=== PATIENT | female | born 1990 | race Caucasian/White ===

== ENCOUNTER 2018-01-05 11:44 | Emergency (ER) | payer OTHER ==
[2018-01-05] MEDS ORDERED: KETOROLAC 60 MG/2 ML VIAL IM STA (12:17)
[2018-01-05] MEDS ORDERED: LIDOCAINE PATCH 5% TOP STA (12:17)
[2018-01-05] MEDS ORDERED: DEXAMETHASONE 10 MG/ML VIAL PO STA (12:17)
[2018-01-05] MEDS ORDERED: ACETAMINOPHEN 500 MG TABLET PO STA (12:17)
--- NOTE | 2018-01-05 12:20 | ED Physician Documentation ---
PD HPI BACK PAIN - Stated complaint Stated Complaint: BK PX - Chief complaint Chief Complaint: General - History obtained from History obtained from: Patient - History of Present Illness Timing - onset: Yesterday Timing - details: Abrupt onset Location: Lower, Right Quality: Pain, Spasm Associated symptoms: No: Fever, Weakness Contributing factors: Lifting Similar symptoms before: Work up / diagnostics, Treatment Recently seen: Not recently seen - Additional information Additional information: patient is a 27 year old female with a history of a bulging disc and sciatica who is presenting to the emergency department for low back pain. Patient states that she was washing her dog yesterday evening and she tried to pick him up and he wiggled out of her arm. During that incident it caused pain in her lower back radiating down her leg. Review of Systems Constitutional: denies: Fever : denies: Dysuria, Frequency, Hesitancy, Unable to Void, Incontinent Skin: denies: Rash, Lesions Musculoskeletal: reports: Back pain, Extremity pain Neurologic: denies: Generalized weakness, Focal weakness, Numbness PD PAST MEDICAL HISTORY - Past Medical History Past Medical History: No - Past Surgical History Past Surgical History: No - Present Medications Home Medications: Ambulatory Orders Medication Instructions Recorded Confirmed Cyclobenzaprine [Flexeril] 10 mg PO 01/05/18 Etonogestrel [Nexplanon] 68 mg SQ 01/05/18 Lidocaine Patch 5% [Lidoderm Patch] 1 each TOP DAILY #14 patch 01/05/18 diazePAM [Valium] 5 - 10 mg PO TID PRN #15 tablet 01/05/18 - Allergies Allergies/Adverse Reactions: Allergies Allergy/AdvReac Type Severity Reaction Status Date / Time No Known Drug Allergies Allergy Verified 01/05/18 11:49 - Social History Does the pt smoke?: No Smoking Status: Never smoker Does the pt drink ETOH?: No Does the pt have substance abuse?: No - Immunizations Immunizations are current?: Yes - POLST Patient has POLST: No PD ED PE NORMAL - Vitals Vital signs reviewed: Yes - General General: No acute distress - HEENT HEENT: Atraumatic - Neck Neck: Supple, no meningeal sign - Cardiac Cardiac: RRR - Respiratory Respiratory: No respiratory distress - Abdomen Abdomen: Soft, Non tender - Derm Derm: Normal color, Warm and dry - Neuro Neuro: No sensory deficit Eye Opening: Spontaneous Motor: Obeys Commands - Psych Psych: Normal mood PD ED PE EXPANDED - Back Back: Soft tissue tenderness, Straight leg raise + R Results - Vitals Vitals: Vital Signs - 24 hr 01/05/18 11:48 Temperature 36.5 C Heart Rate 108 H Respiratory 22 Rate Blood Pressure 159/104 H O2 Saturation 100 Oxygen O2 Source Room air PD MEDICAL DECISION MAKING - ED course Complexity details: reviewed old records, reviewed results, re-evaluated patient , considered differential, d/w patient ED course: Patient was seen and examined at bedside. patient was well appearing in no distress. No imaging was indicated at this time. patient was able to ambulate without difficulty and had no parasthesias or focal deficits. Patient was treated with toradol, decadron and a lidoderm patch. Patient required no further work up at this time and was stable for discharge with outpatient follow up. - Sepsis Event Vital Signs: Vital Signs - 24 hr 01/05/18 11:48 Temperature 36.5 C Heart Rate 108 H Respiratory 22 Rate Blood Pressure 159/104 H O2 Saturation 100 Oxygen O2 Source Room air Departure - Departure Disposition: 01 Home, Self Care Clinical Impression: Sciatica Condition: Good Instructions: ED Sprain Strain Lumbar Follow-Up: primary,care provider [Other] Prescriptions: diazePAM [Valium] 5 - 10 mg PO TID PRN #15 tablet PRN Reason: Spasms Lidocaine Patch 5% [Lidoderm Patch] 1 each TOP DAILY #14 patch Comments: Your should take motrin or tylenol as needed for pain. You can take the vailum as needed for spasm. you should follow up with your orthopedist if your symptos don't improve. You may return to the emergency department at any time for new, worsening or uncontrollable symptoms.
[2018-01-05 12:49] VITALS: BP 120/76
== END 2018-01-05 12:48 | disposition home or self-care (01) ==
LOC: ED 11:44
DX: M54.41 Lumbago with sciatica, right side (principal)
CPT/HCPCS: 96372; 99283; A9270